=== PATIENT | male | born 1945 ===

== ENCOUNTER 2018-12-29 12:24 | Emergency (ER) | payer MEDICARE, OTHER ==
--- NOTE | 2018-12-29 14:01 | ED ---
HPI Cardiac - HPI Summary HPI Summary: This patient is a 73 year old M presenting to [facility] accompanied by his with a chief complaint of low BP and high heart rate since earlier today. Pt says he was at [facility] where they would not let him workout because his BP was low and heart rate was high. Pt notes he went into cardiac arrest in the past while walking on a treadmill. The patient rates the pain 0/10 in severity. Symptoms aggravated by nothing. Symptoms alleviated by nothing. Patient denies CP, cough, nausea, vomiting. Medications reviewed. Allergies noted. PMHx of MO, cardiac arrest. Pt denies hx of arrhythmia. Pt does not smoke or use drugs, but occasionally drinks alcohol. - History of Current Complaint Chief Complaint: EDDysrhythmPalp Stated Complaint: HIGH PULSE,LOW BP TOLD HIM TO COME IN PER PT Time Seen by Provider: 12/29/18 13:52 Hx Obtained From: Patient, Family/[employer] - Onset/Duration: Started Hours Ago - earlier today, Still Present Timing: Lasting Hours - since earlier today Initial Severity: Mild Current Severity: Mild Pain Intensity: 0 Pain Scale Used: 0-10 Numeric Character: Other: - low BP and high heart rate Aggravating Factor(s): Nothing Alleviating Factor(s): Nothing Associated Signs and Symptoms: Positive: Other: - positive - low BP, high heart rate.. Negative: Chest Pain, Nausea, Cough, Vomiting - Allergy/Home Medications Allergies/Adverse Reactions: Allergies Allergy/AdvReac Type Severity Reaction Status Date / Time Sulfa (Sulfonamide Allergy Unknown Unknown Verified 12/29/18 12:30 Antibiotics) Reaction Details Home Medications: Home Medications Acetaminophen TAB* [Tylenol TAB*] 100 mg PO BEDTIME PRN MDD 3000mg 12/29/18 [ History Confirmed 12/29/18] Apixaban* [Eliquis*] 5 mg PO BID 12/29/18 [History Confirmed 12/29/18] Atorvastatin* [Lipitor*] 10 mg PO BID 12/29/18 [History Confirmed 12/29/18] Cholecalciferol CAP/TAB(NF) [Vitamin D3 CAP/TAB (NF)] 1,000 unit PO QAM [History Confirmed 12/29/18] Diclofenac Sodium 1.5 % TOPICAL TID PRN 12/29/18 [History Confirmed 12/29/18] Glucosamine Sulfate [Glucosamine Sulfate Maxim] 1,000 - 3,000 mg PO DAILY [History Confirmed 12/29/18] Metoprolol Succinate XL TAB* [Toprol XL TAB*] 50 mg PO QPM 12/29/18 [History Confirmed 12/29/18] Naproxen TAB* [Naprosyn 250 mg TAB*] 500 mg PO DAILY PRN 12/29/18 [History Confirmed 12/29/18] Quinapril (NF) [Accupril (NF)] 5 mg PO QAM 12/29/18 [History Confirmed 12/29/18] Spironolactone TAB* [Aldactone TAB*] 25 mg PO QAM 12/29/18 [History Confirmed ] Tamsulosin CAP* [Flomax CAP*] 20 mg PO QPM 12/29/18 [History Confirmed 12/29/18] PMH/Surg Hx/FS Hx/Imm Hx Previously Healthy: No Cardiovascular History: Reports: Hx Cardiac Arrest, Hx Myocardial Infarction Musculoskeletal History: Denies: Hx Rheumatoid Arthritis, Hx Osteoporosis Sensory History: Denies: Hx Cataracts EENT History: Denies: Hx Deafness - Surgical History Surgical History: Yes Infectious Disease History: No Infectious Disease History: Denies: Traveled Outside the [place] in Last 30 Days - Family History Known Family History: Positive: None - Social History Alcohol Use: Occasionally Substance Use Type: Reports: None Hx Tobacco Use: No Review of Systems Cardiovascular: Other - positive - low BP, high heart rate Negative: Chest Pain Negative: Cough Negative: Vomiting, Nausea All Other Systems Reviewed And Are Negative: Yes Physical Exam - Summary Physical Exam Summary: Constitutional: Well-developed, Well-nourished, Alert. (-) Distressed Skin: Warm, Dry HENT: Normocephalic; Atraumatic Eyes: Conjunctiva normal Neck: Musculoskeletal ROM normal neck. (-) JVD, (-) Stridor, (-) Tracheal deviation Cardio: Rhythm regular, rate normal, Heart sounds normal; Intact distal pulses; The pedal pulses are 2+ and symmetric. Radial pulses are 2+ and symmetric. (-) Murmur Pulmonary/Chest wall: Effort normal. (-) Respiratory distress, (-) Wheezes, (-) Rales Abd: Soft, (-) tenderness, (-) Distension, (-) Guarding, (-) Rebound Musculoskeletal: (-) Edema Lymph: (-) Cervical adenopathy Neuro: Alert, Oriented x3 Psych: Mood and affect Normal Triage Information Reviewed: Yes Vital Signs On Initial Exam: Initial Vitals Temp Pulse Resp BP Pulse Ox 97.3 F 72 16 121/78 97 12/29/18 12:26 12/29/18 12:26 12/29/18 12:26 12/29/18 12:26 12/29/18 12:26 Vital Signs Reviewed: Yes Diagnostics - Vital Signs Vital Signs Temp Pulse Resp BP Pulse Ox 12/29/18 12:26 97.3 F 72 16 121/78 97 - Laboratory Result Diagrams: 12/29/18 14:09 12/29/18 14:09 Lab Statement: Any lab studies that have been ordered have been reviewed, and results considered in the medical decision making process. - EKG 1402 Cardiac Rate: NL - 96 BPM EKG Rhythm: Atrial Fibrillation Summary of EKG Findings: 96 BPM, a-fib/flutter, Q wave V1-V4, 2,3 AVF Disposition - Course Course Of Treatment: Patient was sent in from his gym after he was noted to have a high heart rate and low blood pressure. On arrival, patient's vital signs are within normal limits and he was in atrial fibrillation/flutter. Patient had one performed which grossly unremarkable. Patient had his pacemaker and for bladder interrogated with no events noted today. Patient is encouraged to call his television installer today to let him know that he is in atrial fibrillation. He is on eliquist so he is anticoagulated. - Diagnoses Provider Diagnoses: Atrial fibrillation Discharge ED - Sign-Out/Discharge Documenting (check all that apply): Patient Departure - discharge Patient Received Moderate/Deep Sedation with Procedure: No - Discharge Plan Condition: Stable Disposition: HOME Patient Education Materials: A-fib (Atrial Fibrillation) (ED) Referrals: Elfego Casillas MD [Primary Care Provider] - 2 Days Additional Instructions: Call and let your television installer know that you are in atrial fibrillation. Follow up with your primary care provider within 1-3 days. Return to the ED for any new or worsening symptoms. - Billing Disposition and Condition Condition: STABLE Disposition: Home - Attestation Statements Document Initiated by Scribe: Yes Documenting Scribe: Theo Ventura Provider For Whom Scribe is Documenting (Include Credential): Dr. Siddharth Fermin MD Scribe Attestation: I, Theo Ventura, scribed for Dr. Siddharth Fermin MD on 12/29/18 at 1738. Scribe Documentation Reviewed: Yes Provider Attestation: The documentation as recorded by the ben, Theo Ventura accurately reflects the service I personally performed and the decisions made by me, Dr. Siddharth Fermin MD Status of Scribe Document: Viewed
[2018-12-29 14:19] LABS: ABS Eosinophils 0.1 10^3/ul (0-0.6); ABS Lymphocytes 1.3 10^3/ul (1.0-4.8); ABS Monocytes 0.6 10^3/ul (0-0.8); ABS Neutrophils 3.9 10^3/ul (1.5-7.7); Eosinophil % 0.9 %; Hematocrit 47 % (42-52); Lymphocyte % 21.6 %; Mean Corpuscular HGB Conc 34 g/dL (31-36); Mean Corpuscular Hemoglobin 32 pg (27-31); Mean Corpuscular Volume 92 fL (80-94); Mean Platelet Volume 7.2 fL (7.4-10.4); Nucleated Red Blood Cells % 0.1; Platelet Count 176 10^3/uL (150-450); Red Blood Count 5.08 10^6 /uL (4.18-5.48); Red Cell Distribution Width 14 % (10-15); White Blood Count 5.8 10^3/uL (3.5-10.8)
[2018-12-29 14:41] LABS: Albumin 4.3 g/dL (3.2-5.2); Albumin/Globulin Ratio 1.7 (1-3); BUN/Creatinine Ratio 22.8 (8-20); Calcium 9.3 mg/dL (8.6-10.3); EGFR African American 76.2 (>60); Globulin 2.6 g/dL (2-4); Magnesium 2.3 mg/dL (1.9-2.7); Potassium 4.9 mmol/L (3.5-5.0); Total Bilirubin 0.7 mg/dL (0.2-1.0); Total Protein 6.9 g/dL (6.4-8.9)
[2018-12-29 14:42] LABS: Troponin I 0.01 ng/mL (<0.04)
[2018-12-29 15:35] LABS: TSH (Thyroid Stimulating Horm) 0.96 mcIU/mL (0.34-5.60)
[2018-12-29 15:56] VITALS: BP 110/77
== END 2018-12-29 15:54 | disposition home or self-care (01) ==
LOC: ED 12:24
DX: I48.91 Unspecified atrial fibrillation (principal); I25.2 Old myocardial infarction; Z86.74 Personal history of sudden cardiac arrest; Z79.01 Long term (current) use of anticoagulants; Z79.899 Other long term (current) drug therapy; Z88.2 Allergy status to sulfonamides
CPT/HCPCS: 36415; 80053; 83735; 84443; 84484; 85025; 93005; 99283